=== PATIENT | female | born 1990 ===

== ENCOUNTER 2020-06-17 14:35 | Emergency (ER) | payer MEDICAID ==
[~2020-06-17] VITALS: Ht 170.2 cm; Wt 102.0 kg
[2020-06-17 14:40] VITALS: BP 118/72
[2020-06-17 15:42] LABS: CLARITY URINE CLEAR (CLEAR); COLOR URINE YELLOW (YELLOW); KETONES URINE TRACE (NEGATIVE); LEUKOCYTE ESTERASE URINE NEGATIVE (NEGATIVE); NITRITE URINE NEGATIVE (NEGATIVE); OCCULT BLOOD URINE NEGATIVE (NEGATIVE); PH URINE 5.5 (4.5-8.0); PROTEIN URINE NEGATIVE (NEGATIVE); SPECIFIC GRAVITY URINE 1.025 (1.005-1.030); UROBILINOGEN URINE 0.2 E.U./dL (0.2-1.0)
== END 2020-06-17 17:04 | disposition home or self-care (01) ==
LOC: ER 14:35
DX: M79.605 Pain in left leg (principal); Z90.49 Acquired absence of other specified parts of digestive tract
CPT/HCPCS: 81003; 81025; 93971; 99284